=== PATIENT | female | born 1995 | race Caucasian/White ===

== ENCOUNTER 2022-10-31 14:21 | Emergency (ER) | payer BC ==
[2022-10-31 15:17] LABS: BASOPHILS ABSOLUTE AUTO 0.02 10^3/uL (0.00-0.50); BASOPHILS PERCENT AUTO 0.3 % (0-1); EOSINOPHILS ABSOLUTE AUTO 0.27 10^3/uL (0.00-1.50); HEMATOCRIT 42.6 % (37.0-47.0); HEMOGLOBIN 14.2 g/dL (12.0-16.0); IMMATURE GRAN ABSOLUTE AUTO 0.07 10^3/uL (0.00-0.49); LYMPHOCYTES ABSOLUTE AUTO 1.93 10^3/uL (0.60-5.00); LYMPHOCYTES PERCENT AUTO 28.9 % (24-44); MEAN CORPUSCULAR HEMOGLOBIN 29.1 pg (27.0-32.0); MEAN CORPUSCULAR HGB CONC 33.3 g/dL (32.0-36.0); MEAN CORPUSCULAR VOLUME 87.3 fL (83.0-97.0); MONOCYTES ABSOLUTE AUTO 0.87 10^3/uL (0.00-1.50); NEUTROPHILS ABSOLUTE AUTO 3.51 x10^3/uL (1.80-8.00); NEUTROPHILS PERCENT AUTO 52.8 % (41-71); PLATELET COUNT,PLT 387 10^3/uL (150-400); RED BLOOD CELL COUNT 4.88 x10^6/uL (4.00-5.50); WHITE BLOOD CELL COUNT,WBC 6.7 10^3/uL (4.0-11.0)
[2022-10-31 15:31] LABS: ALBUMIN 3.5 g/dL (3.4-5.0); BILIRUBIN TOTAL 0.3 mg/dL (0.0-1.0); CALCIUM 9.3 mg/dL (8.4-10.1); CREATININE 0.9 mg/dL (0.6-1.0); EST CRCL DRUG DOSING (CG) 81.08 mL/min; POTASSIUM,K 4.5 mEq/L (3.5-5.0); PROTEIN TOTAL,TP 8.5 g/dL (6.4-8.2)
== END 2022-10-31 15:54 | disposition home or self-care (01) ==
LOC: CC.ED 14:21
DX: K64.9 Unspecified hemorrhoids (principal); Z91.013 Allergy to seafood
CPT/HCPCS: 36415; 80053; 85025; 99283; 99284